=== PATIENT | female | born 1945 | race Caucasian/White ===

== ENCOUNTER 2020-02-10 00:46 | Inpatient (IN) ==
[2020-02-10] MEDS ORDERED: ONDANSETRON 4 MG/2 ML VIAL IV STA (01:13)
[2020-02-10] MEDS ORDERED: SODIUM CHLORIDE 0.9% 1,000 ML IV STA (01:13)
[2020-02-10 01:36] LABS: Basophils % 0.6 % (0.0-0.8); Eosinophils # 0.1 10*3/uL (0.0-0.87); Eosinophils % 1.8 % (0.00-10.9); Hematocrit 39.5 VOL% (35.7-47.0); Hemoglobin 13.7 GM/DL (12.0-16.0); Immature Granulocytes % 0.3 %; Immature Granulocytes Absolute 0.02 #; Lymphocytes # 0.7 10*3/uL (1.4-4.0); Lymphocytes % 10.9 % (21.3-54.2); Mean Corpuscular HGB Conc 34.7 GM/DL (32-36); Mean Corpuscular Volume 90.4 FL (87-102); Mean Platelet Volume 9.9 FL (9.6-12.0); Monocytes % 5.4 % (1.7-12.7); Platelet Count 141 T/CUMM (130-400); Red Blood Count 4.37 MC/CUMM (3.8-5.5); Red Cell Distribution Width 12.1 % (9.3-17.3); White Blood Count 6.7 T/CUMM (4-12)
[2020-02-10 01:54] LABS: Bilirubin,Total 0.4 MG/DL (0.2-1.0); Calcium 9.9 MG/DL (8.5-10.1); Osmolality,Calculated 284.7 MOS/KG (273-304); Total Protein 7.3 G/DL (6.4-8.3)
[2020-02-10 02:27] LABS: Bilirubin,Urine Negative (Negative); Blood, Urine Negative (Negative); Calcium Oxalate Crystals,Urine Moderate /HPF (Few); Glucose,Urine (UA) >=500 mg/dL (Negative); Ketones,Urine 20 mg/dL (Negative); Mucus,Urine Few /LPF (Occasional); Nitrite,Urine Negative (Negative); Protein,Urine 30 MG/DL; RBC,Urine 11 /HPF (0-4); Squamous Epithelial Cell,Urine Occasional /HPF (0-10); Urine Appearance Slightly Hazy (Clear); Urine Color Yellow (Yellow); Urine Specific Gravity 1.027 (1.001-1.035); WBC,Urine <1 /HPF (0-6)
[2020-02-10] MEDS ORDERED: ONDANSETRON 4 MG/2 ML VIAL IV PRN (04:43)
[2020-02-10] MEDS ORDERED: PIPERACILLIN/TAZOBACTAM 3,375 MG VIAL IV ONE (04:55)
[2020-02-10] MEDS ORDERED: SODIUM CHLORIDE 0.9% 100 ML IV ONE (04:56)
[2020-02-10] MEDS: DEXTROSE 5% NACL 0.45% 1,000 ML IV SCH ×3 (05:00→21:00)
[2020-02-10] MEDS: PIPERACILLIN/TAZOBACTAM 3,375 MG in SODIUM CHLORIDE 0.9% 100 ML IV SCH ×3 (05:10→22:49)
[2020-02-10] MEDS ORDERED: ALBUTEROL 2.5 MG/3 ML NEB RESP TX PRN (06:22)
[2020-02-10] MEDS ORDERED: INFLUENZA VIRUS VACCINE 0.5 ML SYRINGE IM ONE (07:15)
[2020-02-10] MEDS ORDERED: GLUCAGON 1 MG VIAL IM PRN (08:27)
[2020-02-10] MEDS ORDERED: DEXTROSE 50% 25 GM/50 ML VIAL IV PRN (08:27)
[2020-02-10] MEDS: PANTOPRAZOLE 40 MG VIAL IV SCH (09:42)
[2020-02-10] MEDS: INSULIN LISPRO 100 UNIT/ML SUBCUT SCH ×2 (12:43→23:09)
[2020-02-10] MEDS: BUDESONIDE/FORMOTEROL 160-4.5 INHALER 6 GM INH SCH (22:45)
[2020-02-11 06:09] LABS: Eosinophils # 0.3 10*3/uL (0.0-0.87); Eosinophils % 9.1 % (0.00-10.9); Hematocrit 34.7 VOL% (35.7-47.0); Lymphocytes # 1.4 10*3/uL (1.4-4.0); Lymphocytes % 46.9 % (21.3-54.2); Mean Corpuscular HGB Conc 34.6 GM/DL (32-36); Mean Corpuscular Volume 91.6 FL (87-102); Mean Platelet Volume 10.4 FL (9.6-12.0); Monocytes % 7.2 % (1.7-12.7); Neutrophils % 35.8 % (38.7-73.9); Platelet Count 112 T/CUMM (130-400); Red Blood Count 3.79 MC/CUMM (3.8-5.5); Red Cell Distribution Width 12.1 % (9.3-17.3); White Blood Count 3.1 T/CUMM (4-12)
[2020-02-11 06:26] LABS: Calcium 8.7 MG/DL (8.5-10.1); Osmolality,Calculated 288.1 MOS/KG (273-304)
[2020-02-11 06:37] LABS: Eosinophils 9 % (0-10); Hypochromasia 1+; Lymphocytes 41 % (20-55); Microcytosis 1+; Platelet Estimate Decreased; Segmented Neutrophils 39 % (50-85); Total Cells Counted 100
[2020-02-11] MEDS: DEXTROSE 5% NACL 0.45% 1,000 ML IV SCH ×3 (07:38→22:05)
[2020-02-11] MEDS: INSULIN LISPRO 100 UNIT/ML SUBCUT SCH ×4 (07:39→18:18)
[2020-02-11] MEDS: PIPERACILLIN/TAZOBACTAM 3,375 MG in SODIUM CHLORIDE 0.9% 100 ML IV SCH ×2 (07:39→17:18)
[2020-02-11] MEDS ORDERED: POTASSIUM CHLORIDE RIDER 10 MEQ in PREMIX 1 EACH IV PRN (09:27)
[2020-02-11] MEDS: PANTOPRAZOLE 40 MG VIAL IV SCH (09:50)
[2020-02-11] MEDS: BUDESONIDE/FORMOTEROL 160-4.5 INHALER 6 GM INH SCH ×2 (09:51→20:24)
[2020-02-11] MEDS: POTASSIUM CHLORIDE 20 MEQ TABLET PO PRN ×4 (14:29→22:34)
[2020-02-12] MEDS: POTASSIUM CHLORIDE 20 MEQ TABLET PO PRN (00:05)
[2020-02-12] MEDS: PIPERACILLIN/TAZOBACTAM 3,375 MG in SODIUM CHLORIDE 0.9% 100 ML IV SCH ×2 (00:05→08:27)
[2020-02-12] MEDS: INSULIN LISPRO 100 UNIT/ML SUBCUT SCH ×3 (00:39→11:36)
[2020-02-12] MEDS: DEXTROSE 5% NACL 0.45% 1,000 ML IV SCH (03:20)
[2020-02-12] MEDS: BUDESONIDE/FORMOTEROL 160-4.5 INHALER 6 GM INH SCH (08:27)
[2020-02-12] MEDS: PANTOPRAZOLE 40 MG VIAL IV SCH (08:28)
[2020-02-12 09:42] LABS: Calcium 8.9 MG/DL (8.5-10.1); Osmolality,Calculated 284.3 MOS/KG (273-304)
[2020-02-12 10:10] LABS: Basophils % 1.5 % (0.0-0.8); Eosinophils # 0.3 10*3/uL (0.0-0.87); Eosinophils % 11.7 % (0.00-10.9); Hematocrit 35.2 VOL% (35.7-47.0); Immature Granulocytes % 0.4 %; Immature Granulocytes Absolute 0.01 #; Lymphocytes # 1.1 10*3/uL (1.4-4.0); Lymphocytes % 41.6 % (21.3-54.2); Mean Corpuscular HGB Conc 34.1 GM/DL (32-36); Mean Corpuscular Volume 91.4 FL (87-102); Mean Platelet Volume 10.3 FL (9.6-12.0); Monocytes % 9.9 % (1.7-12.7); Neutrophils % 34.9 % (38.7-73.9); Platelet Count 116 T/CUMM (130-400); Red Blood Count 3.85 MC/CUMM (3.8-5.5); White Blood Count 2.7 T/CUMM (4-12)
[2020-02-12 10:43] LABS: Eosinophils 10 % (0-10); Lymphocytes 46 % (20-55); Platelet Estimate Decreased; Segmented Neutrophils 34 % (50-85); Total Cells Counted 100
[2020-02-12 10:44] LABS: Atypical Lymphocytes Few; Microcytosis 1+
[2020-02-12 12:00] VITALS: BP 102/71
== END 2020-02-12 16:15 | disposition home or self-care (01) | DRG 390 ==
LOC: EDBD → EDUNIT# → N.EDINP 00:46 → N.ED 00:46 → N.3E 05:09
PROVIDERS: ADMIT Surgery; ATTEND Surgery